=== PATIENT | male | born 1995 | race Asian ===

== ENCOUNTER 2020-09-11 15:26 | Outpatient (CLI) | payer SELFPAY ==
--- NOTE | 2020-09-11 16:43 | Ultrasound Report ---
PROCEDURE: Chest INDICATIONS: RIGHT MID BACK LUMP TECHNIQUE: Real-time scanning was performed of the area of interest in the right back. COMPARISON: None. FINDINGS: At the palpable area of interest in the right mid back, there is a circumscribed nearly isoechoic sub cutaneous lesion measuring 5.1 x 2.3 x 1.2 cm that is partially compressible. 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 Consider targeted contrast-enhanced CT or MRI for further evaluation if in dicated clinically. Reviewed by: Tomas Briggs MD on 09/11/2020 4:41 PM PDT Approved by: Tomas Briggs MD on 09/11/2020 4:41 PM PDT Station ID: [id number]
== END 2020-09-11 15:27 | disposition home or self-care (01) ==
LOC: DI 15:26
PROVIDERS: ATTEND Physician Assistant
DX: R22.2 Localized swelling, mass and lump, trunk (principal); M54.9 Dorsalgia, unspecified

== ENCOUNTER 2020-10-26 07:41 | Outpatient (CLI) | payer OTHER | END 2020-10-26 23:59 | disposition EMS.NT | LOC: EMS 07:41 | DX: R06.02 Shortness of breath (principal); R50.9 Fever, unspecified; R53.1 Weakness; R05 Cough ==

== ENCOUNTER 2023-04-23 06:16 | Emergency (ER) | payer OTHER ==
--- NOTE | 2023-04-23 07:00 | ED Physician Documentation ---
PD HPI GI BLEED - Stated complaint Stated Complaint: MALE - Chief complaint Chief Complaint: General - History obtained from History obtained from: Patient - History of Present Illness Timing - onset: How many days ago (3-4) Timing - duration: Days (3-4) Timing - details: Abrupt onset, Still present Associated symptoms: Other (rectal pain with swelling) [facility] and Dx with thrombosed hemorrhoid, with incision of it and pt states it was improved for a day, but now painful again.) PD PAST MEDICAL HISTORY - Past Medical History Past Medical History: Yes Other Past Medical History: Hemorrhoids - Past Surgical History Past Surgical History: Yes Derm: Other - Present Medications Home Medications: Ambulatory Orders Medication Instructions Recorded Confirmed Docusate Sodium 100Mg Capsule 100 mg PO DAILY #20 cap 04/23/23 [Colace 100Mg Capsule] Hydrocortisone [Anusol-Hc] 1 applic RC BID 5 Days #30 gm 04/23/23 - Allergies Allergies/Adverse Reactions: Allergies Allergy/AdvReac Type Severity Reaction Status Date / Time No Known Drug Allergies Allergy Verified 04/23/23 06:33 - Social History Does the pt smoke?: No Smoking Status: Never smoker Does the pt drink ETOH?: No Does the pt have substance abuse?: No - Immunizations Immunizations are current?: Yes - POLST Patient has POLST: No PD ED PE NORMAL - Vitals Vital signs reviewed: Yes - General General: Alert and oriented X 3, Well developed/nourished - Rectal Rectal: Other (external hemorrhoid that is very tender, firm, purple coloring, c/w thrombosed. No surrounding redness, swelling nor tender.) - Derm Derm: Normal color, Warm and dry Results - Vitals Vitals: Vital Signs - 24 hr 04/23/23 04/23/23 04/23/23 06:27 07:07 08:20 Temperature 36.5 C Heart Rate 84 70 75 Respiratory 18 16 16 Rate Blood Pressure 127/86 H 119/75 122/70 O2 Saturation 98 96 98 Oxygen O2 Source Nasal cannula Procedures - General procedure General procedure: thrombosed hemorrhoid anesth local with lido 1% with epi. Then cleansed. Scalpel used to incise the hemorrhoid and clots extruded with forceps with deflation of the hemorrid and less tender. PD Medical Decision Making - ED course Complexity details: considered differential (thrombosed hemorrhoid without signs of infection nor surrrounding abscess. Incised and clot removed with deflation of the firm/swelling. Mild bleeding. ), d/w patient Departure - Departure Disposition: 01 Home, Self Care Clinical Impression: Thrombosed external hemorrhoid Condition: Stable Record reviewed to determine appropriate education?: Yes Instructions: ED Hemorrhoids Follow-Up: [facility] [Provider Group] Prescriptions: Hydrocortisone [Anusol-Hc] 1 applic RC BID 5 Days #30 gm Docusate Sodium 100Mg Capsule [Colace 100Mg Capsule] 100 mg PO DAILY #20 cap Comments: Continue with your current treatments of the warm soaks 2-3 times daily for the first couple of days and then once or twice daily until seems fully healed. I would also suggest some anti-inflammatory hemorrhoid cream externally to the area after cleansing. He will have some bleeding from this likely for couple of days due to the incision. Watch for signs of purulence or redness as indications for infection. That is the main goal of the soaking is to keep germs out. Tylenol or ibuprofen as needed for pains. I would suggest a stool softener for the next several days to week. Hold off on that if you are getting too loose of stool. Recheck if not fully improved and healed over the next several days to week. Forms: PCP List Discharge Date/Time: 04/23/23 08:21
[2023-04-23] MEDS: KETOROLAC 30 MG/ML VIAL IM STA (07:22)
[2023-04-23] MEDS: LIDOCAINE 1%-EPI 1:100000 20 ML MDV SUBQ STA (07:22)
[2023-04-23 08:24] VITALS: BP 122/70; O2SAT 98
== END 2023-04-23 08:21 | disposition home or self-care (01) ==
LOC: ED 06:16
DX: K64.5 Perianal venous thrombosis (principal)
CPT/HCPCS: 46083; 99283